=== PATIENT | male | born 1990 ===

== ENCOUNTER 2017-09-29 08:32 | Emergency (ER) | payer OTHER ==
--- NOTE | 2017-09-29 08:53 | UC ---
General HPI - HPI Summary HPI Summary: This is scribe Kirsty Allred documenting for attending Bay Constantino M.D. Pt is a 27 y/o M who presents to [facility] c/o L eye erythema and sinus congestion since Sunday (5 days). Has been treating the eye erythema with Rx drops from his PCP in [facility]. Additionally c/o throat pain/dryness, ROME (migraine) every morning and cough since last night. Denies fever, chills. Initially suspected his sx were related to allergies, but he has been taking Claritin daily without relief. Has had prior similar episodes in the past and typically he receives a Z Mario from his PCP, though he is visiting from [facility]. - History of Current Complaint Chief Complaint: UCRespiratory Stated Complaint: RESP ISSUE Time Seen by Provider: 09/29/17 08:42 Hx Obtained From: Patient Onset/Duration: Lasting Days - 5 days, Still Present Current Severity: None Pain Intensity: 0 Pain Location at: NEGATIVE Aggravating: Nothing Alleviating: Eye erythema - Rx drops Associated Signs & Symptoms: Negative: Fever - Allergy/Home Medications Allergies/Adverse Reactions: Allergies Allergy/AdvReac Type Severity Reaction Status Date / Time No Known Allergies Allergy Verified 09/29/17 08:47 Home Medications: Home Medications Acetaminophen TAB* [Tylenol TAB*] 650 mg PO Q4H PRN 09/29/17 [History Confirmed 09/29/17] Loratadine [Claritin] 10 mg PO DAILY PRN 09/29/17 [History Confirmed 09/29/17] PMH/Surg Hx/FS Hx/Imm Hx - Additional Past Medical History Additional PMH: NEGATIVE: HTN, DM Respiratory History: Pneumonia - Surgical History Surgical History: Yes Surgery Procedure, Year, and Place: tonsillectomy - Family History Known Family History: Positive: Cardiac Disease - Social History Alcohol Use: Rare Substance Use Type: None Smoking Status (MU): Never Smoked Tobacco Review of Systems Constitutional: Negative Skin: Negative Eyes: Eye Redness - Left ENT: Sore Throat - and dryness, Sinus Congestion Respiratory: Cough Cardiovascular: Negative Gastrointestinal: Negative Genitourinary: Negative Motor: Negative Neurovascular: Negative Musculoskeletal: Negative Neurological: Headache Psychological: Negative All Other Systems Reviewed And Are Negative: Yes Physical Exam - Summary Physical Exam Summary: VITAL SIGNS: Reviewed. GENERAL: Patient is a well-developed and nourished male who is lying comfortable in the stretcher. Patient is not in any acute respiratory distress. HEAD AND FACE: Normocephalic EYES: PERRLA, EOMI x 2. EARS: Hearing grossly intact. MOUTH: Oropharynx within normal limits. NECK: Supple, trachea is midline, no adenopathy, no JVD, no carotid bruit. CHEST: Symmetric, no tenderness at palpation LUNGS: Course breath sounds. No wheezing or crackles. CVS: Regular rate and rhythm, S1 and S2 present, no murmurs or gallops appreciated. ABDOMEN: Soft, non-tender. Bowel sounds are normal. No abdominal abnormal pulsations. EXTREMITIES: Full ROM in all major joints, no edema, no cyanosis or clubbing. NEURO: Alert and oriented x 3. No acute neurological deficits. Speech is normal and follows commands. SKIN: Dry and warm Triage Information Reviewed: Yes Vital Signs: Initial Vital Signs Temp 97.5 F 09/29/17 08:44 Pulse 85 09/29/17 08:44 Resp 16 09/29/17 08:44 BP 108/76 09/29/17 08:44 Pulse Ox 100 09/29/17 08:44 Vital Signs Reviewed: Yes Course/Dx - Course Course Of Treatment: Patient is a 27-year-old male who presents to the urgent care with a chief complaint of having tripped cough, chills, chest congestion for the past couple days. Patient also has a postnasal drip and sinus congestion. He seems to the patient has an acute bronchitis and sinusitis therefore the patient was given a prescription for azithromycin. Patient is hemodynamically stable alert and oriented 3. - Differential Dx - Multi-Symptom Provider Diagnoses: Acute bronchitis Discharge - Sign-Out/Discharge Documenting (check all that apply): Patient Departure - Discharge - Discharge Plan Condition: Stable Disposition: HOME Prescriptions: Azithromycin TAB* [Zithromax TAB (Z-MARIO) 250 mg #6 tabs] 2 tab PO .TODAY, THEN 1 DAILY #1 mario Patient Education Materials: Acute Bronchitis (ED) Referrals: [facility] [Outside] No Primary Care Phys,NOPCP [Primary Care Provider] - Additional Instructions: Take medications as instructed and adhere to plan Take Acetaminophen or ibuprofen for pain or fever Increase your fluid intake Return to the or go to the emergency department if symptoms worsen Follow-up with primary care physician in next 2-3 days - Billing Disposition and Condition Condition: STABLE Disposition: Home
== END 2017-09-29 08:58 | disposition home or self-care (01) ==
LOC: UCEAST 08:32
DX: J20.9 Acute bronchitis, unspecified (principal)
CPT/HCPCS: 99202; G0463